=== PATIENT | male | born 1975 | race Caucasian/White ===

== ENCOUNTER 2018-01-21 06:27 | Emergency (ER) | payer SELFPAY ==
[2018-01-21 07:08] LABS: #Basophils 0.1 thou/uL (0.0-0.2); #Eosinphils 0.4 thou/uL (0.0-0.7); #Lymphocytes 2.5 thou/uL (1.20-3.40); #Monocytes 0.6 thou/uL (0.11-0.59); #Neutrophils 5.1 thou/uL (1.40-6.50); %Basophils 0.7 % (0.0-1.0); %Eosinophils 4.7 % (0.0-10.0); %Lymphocytes 28.7 % (21.0-51.0); %Monocytes 6.8 % (0.0-10.0); Hemoglobin 16.9 g/dL (14.0-18.0); Mean Corpuscular HGB CONC 33.5 g/dL (32.0-36.0); Mean Corpuscular Hemoglobin 31.8 pg (27.0-31.0); Mean Platelet Volume 7.5 fL (7.4-10.4); Platelet Count 381 thou/uL (130-400); RBC Distribution Width 11.6 % (11.5-14.5); White Blood Cell (WBC) Count 8.6 thou/uL (4.8-10.8)
[2018-01-21] MEDS ORDERED: Morphine 4 MG/ML VIAL ONE (07:09)
[2018-01-21] MEDS ORDERED: Ondansetron PF 4 MG/2 ML Vial ONE (07:09)
[2018-01-21 07:30] LABS: ALT (SGPT) 39 U/L (8-55); AST (SGOT) 22 U/L (5-34); Albumin 4.4 g/dL (3.5-5.0); Alkaline Phosphatase 100 U/L (40-150); Anion Gap 12 mmol/L (10-20); BUN (Urea Nitrogen) 16 mg/dL (8.9-20.6); Bilirubin, Total 0.5 mg/dL (0.2-1.2); Calc. Creatinine Clearance 0 mL/min (70-130); Calcium 9.6 mg/dL (7.8-10.44); Carbon Dioxide 24 mmol/L (22-29); Chloride 105 mmol/L (98-107); Estimated GFR-MDRD 84; Globulin 3.4 g/dL (2.4-3.5); Glucose 107 mg/dL (70-105); Lipase 8 U/L (8-78); Potassium 4.2 mmol/L (3.5-5.1); Protein, Total 7.8 g/dL (6.0-8.3); Sodium 137 mmol/L (136-145)
[2018-01-21 07:38] LABS: Bilirubin Negative (Negative); Blood, Urine Moderate (Negative); Clarity CLEAR (Clear); Glucose, Urine (Dipstick) Negative (Negative); Leukocyte Negative (Negative); Nitrite Negative (Negative); Protein, Urine (Dipstick) Trace mg/dL (Neg-Trace); Specific Gravity, Urine 1.029 (1.002-1.036); Urobilinogen 0.2 mg/dL (0.2-1.0); pH, Urine 5.5 (5.0-9.0)
[2018-01-21 07:40] LABS: Bacteria/HPF None Seen HPF (None Seen); Hyaline Casts/LPF 0-3 HYALINE CAST LPF (0-3 Hyaline); Squamous Epithelial 0-3 HPF (0-3); WBC/HPF 0-3 HPF (0-3)
[2018-01-21] MEDS ORDERED: Ketorolac Tromethamine 30 MG/ML VIAL ONE (08:19)
--- NOTE | 2018-01-21 08:36 | ULT ---
RIGHT UPPER QUADRANT ULTRASOUND: Date: 01/21/18 HISTORY: Gallstones. FINDINGS: The liver demonstrates increased and coarse echogenicity consistent with fatty infiltration. No focal mass or intrahepatic ductal dilatation is seen. A nonshadowing 2.4 cm echogenic focus is seen in the gallbladder. The gallbladder wall is at upper limits of normal in thickness, measuring 3.0 mm. The g allbladder is dilated, measuring 10.0 cm. No pericholecystic fluid is seen. The echogenic focus in th e gallbladder may represent a sludge ball. Posterior to this, there is a shadowing gallstone. The com mon duct measures 4.0 mm in diameter. The pancreas is not well visualized due to overlying bowel gas. The right kidney is unremarkable. IMPRESSION: 1. Fatty liver. 2. Cholelithiasis and gallbladder sludge ball. POS: [facility]
== END 2018-01-21 09:34 | disposition home or self-care (01) ==
LOC: ERS 06:27
DX: K80.20 Calculus of gallbladder without cholecystitis without obstruction (principal); F17.210 Nicotine dependence, cigarettes, uncomplicated; Z79.899 Other long term (current) drug therapy
CPT/HCPCS: 76705; 80053; 81003; 81015; 83690; 85025; 96361; 96374; 96375; J1885; J2270; J2405

== ENCOUNTER → 2018-03-24 | Day surgery (SDC) | payer SELFPAY ==
[~2018-03-24] MED LIST: Bupivacaine/Epinephrine 0.25% 30 ML VIAL ONE; Fentanyl 100 MCG/2 ML VIAL ONE; Ketorolac Tromethamine 30 MG/ML VIAL ONE; Lidocaine 2% Jelly 5 ML TUBE ONE; Midazolam HCl 2 mg/2 ml Vial ONE; Morphine 4 MG/ML VIAL ONE; Ondansetron HCl/PF 4 MG/2 ML Vial IVP PRN; PACU-Morphine 4MG/ML VIAL SLOW IVP PRN; Pantoprazole 40 MG VIAL ONE; Piperacillin/Tazobactam 4.5 GM VIAL ONE; Promethazine HCl 25 MG/ML VIAL IM PRN; Promethazine HCl 25 MG/ML VIAL ONE; Promethazine HCl 25 MG/ML VIAL SLOW IVP PRN
--- NOTE | 2018-03-24 09:42 | ULT ---
SONOGRAM RIGHT UPPER QUADRANT: HISTORY: Right upper quadrant pain. COMPARISON: 01/21/2018. FINDINGS: Echogenic sludge and stones are again demonstrated within the gallbladder lumen. There is no gallbla dder wall thickening or pericholecystic fluid. The common duct is 0.4 cm. The liver remains diffuse ly echogenic without focal mass or intrahepatic biliary dilatation. No free fluid. Echogenic focus is apparent at the right renal hilum, consistent with stone on recent CT. IMPRESSION: 1. Cholelithiasis. No evidence of acute biliary obstruction. 2. Hepatosteatosis. 3. Nonobstructing right renal calculus. POS: [facility]
[2018-03-24 10:28] LABS: PTT 31.4 SEC (22.9-36.1); Prothrombin Time 12.9 SEC (12.0-14.7)
--- NOTE | 2018-03-24 10:41 | HP ---
CHIEF COMPLAINT: Epigastric abdominal pain. HISTORY OF PRESENT ILLNESS: The patient is a 43-year-old white male. He presents to the emergency room today for his fourth time since December 17 complaining of epigastric abdominal pain. He has been recognized to have cholelithiasis with a 2.3 cm gallstone present within his gallbladder. CT scan and ultrasound of abdomen were obtained in December to confirm this. For financial reasons, the patient was unable to proceed with an outpatient laparoscopic cholecystectomy. He had acute onset of epigastric abdominal pain at about midnight earlier this morning. He had several episodes of vomiting. He was seen at the hospital in [place] and subsequently transferred here. His laboratory studies have never revealed any significant liver function test abnormality. His electrolytes today are normal. CBC reveals an elevated white blood cell count of 11, that is probably associated with his vomiting. Hemoglobin is 17.4. I am consulted in regard to his multiply recurrent episodes of biliary colic and acute episode today. PAST MEDICAL HISTORY: Negative. PAST SURGICAL HISTORY: None. MEDICATIONS: None. ALLERGIES: NONE. PRIMARY CARE PHYSICIAN: None. PERSONAL AND SOCIAL HISTORY: He is , and his is present at bedside. He has five children. He smokes two packs per day of cigarettes and does not drink alcohol. He denies any illegal drug use. 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 He lives in [place]. REVIEW OF SYSTEMS: Otherwise unremarkable. FAMILY HISTORY: Noncontributory. PHYSICAL EXAMINATION: VITAL SIGNS: He is afebrile. Pulse is in the 90s. Blood pressure is slightly elevated. GENERAL: Well-developed, well-nourished, pleasant white male, resting in bed within obvious discomfort. He is alert and oriented x3. HEAD, EYES, EARS, NOSE, AND THROAT: Unremarkable. NECK: Supple without mass or tenderness. LUNGS: Clear to auscultation throughout. CARDIAC: Regular rate and rhythm without murmur. ABDOMEN: Soft. Surprisingly, even with palpation in the epigastrium and right upper quadrant, he does not have peritoneal signs, typical of a Jaramillo sign. EXTREMITIES: Unremarkable. ASSESSMENT: The patient with symptomatic cholelithiasis with recurrent episodes of biliary colic. PLAN: Laparoscopic cholecystectomy. I have discussed the operation in detail with the patient as well as potential risks. He understands and agrees to proceed with surgery at this time. Job ID: [id number]
--- NOTE | 2018-03-24 11:55 | RAD ---
PORTABLE AP CHEST XRAY: DATE: 03/24/2018. HISTORY: Preoperative evaluation. COMPARISON: 03/24/2018 at 0446 hours. FINDINGS: The cardiac silhouette and pulmonary vasculature are within normal limits. The lungs remain clear. There has been no interval change from the recent study. IMPRESSION: No acute cardiopulmonary process. POS: [facility]
--- NOTE | 2018-03-24 21:08 | OP ---
DATE OF PROCEDURE: 03/24/2018 PREOPERATIVE DIAGNOSIS: Cholelithiasis/cholecystitis. POSTOPERATIVE DIAGNOSIS: Cholelithiasis/cholecystitis. OPERATION PERFORMED: Laparoscopic cholecystectomy. ANESTHESIA: General endotracheal. INDICATIONS: The patient is a 43-year-old white male, who presents to the hospital today with this fourth episode of upper abdominal pain in the past 3 months. He is known to have a large gallstone present within his gallbladder. He is taken to the operative room at this time for laparoscopic cholecystectomy. DESCRIPTION OF OPERATION: Informed consent was obtained. The patient was taken to the operating room where general endotracheal anesthesia was obtained with the patient in the supine position. The abdomen was prepped with Betadine and draped in the usual sterile fashion. 0.25% Marcaine with epinephrine was infiltrated below the umbilicus and a 10 mm infraumbilical incision was created. A Veress needle was passed through this incision into the peritoneal cavity. A pneumoperitoneum was established using carbon dioxide up to a pressure of 15 mmHg. Local anesthetic was infiltrated and 3 additional 5 mm right upper quadrant incisions were created. Through the mid incision, a 5 mm port was passed into the peritoneal cavity. The camera was passed through this port and under direct vision, an 11 port was passed through the infraumbilical incision. The camera was replaced through this port, and under direct vision, 2 additional 5 mm ports were passed through the incisions already created. The gallbladder was grasped and retracted in a cephalad direction. Minimal adhesions were bluntly stripped away from the apex of the gallbladder, and the apex was retracted laterally and inferiorly. Careful dissection was carried out to the apex of the gallbladder to identify the cystic duct and cystic artery. These were each carefully dissected circumferentially. The duct was of normal caliber. Both the duct and the artery were divided between clips, leaving 2 on the side to remain within the abdomen. The gallbladder was then dissected out of the gallbladder fossa using electrocautery and removed through the infraumbilical port site. The fascia was closed with 0 Vicryl suture and a GraNee needle. The right upper quadrant was inspected and irrigated. All irrigant was aspirated. All ports and instruments were removed under direct vision. Pneumoperitoneum was carefully evacuated. Additional local anesthetic was infiltrated into each port site. The skin edges were approximated with 4-0 Monocryl subcuticular sutures, and Dermabond was placed externally. There were no complications. The patient tolerated the procedure well and was taken to the recovery room in stable condition. FINDINGS: The patient had evidence of acute and chronic inflammation of his gallbladder. There were omental adhesions, as well as gallbladder distention. There was a single large dominant gallstone in the apex of the gallbladder. The duct itself was small and noninflamed. The operation was performed without complication or significant blood loss. Additionally, the patient had a small supraumbilical hernia with herniated preperitoneal fat. This preperitoneal fat was resected and the hernia was repaired using a [id number] suture of 0 Vicryl placed with GraNee needle at the end of the case. There were no complications. The patient tolerated the procedure well and was taken to recovery room in stable condition. Job ID: [id number]
== END ==
LOC: ERS 06:25 → SDC 11:31
PROVIDERS: ATTEND Specialist
PROC: 0FT44ZZ Resection of Gallbladder, Percutaneous Endoscopic Approach (ICD-10-PCS; principal; 2018-03-24)
PROC: 0WQF0ZZ Repair Abdominal Wall, Open Approach (ICD-10-PCS; principal; 2018-03-24)
DX: K80.12 Calculus of gallbladder with acute and chronic cholecystitis without obstruction (principal); K42.9 Umbilical hernia without obstruction or gangrene; K66.0 Peritoneal adhesions (postprocedural) (postinfection); K82.8 Other specified diseases of gallbladder
CPT/HCPCS: 36415; 71045; 76705; 85610; 85730; 88304; 93005; 96361; 96365; 96375; 96376; C9113; J0131; J1885; J2250; J2270; J2543; J2550; J3010

== ENCOUNTER 2018-07-15 14:34 | Emergency (ER) | payer SELFPAY ==
[2018-07-15] MEDS ORDERED: ISOVUE-370 76%-LOCM 1 ML ONE (15:15)
--- NOTE | 2018-07-15 16:27 | ULT ---
Testicular ultrasound INDICATION: Right testicular pain for one month TECHNIQUE: Grayscale, color Doppler spectral Doppler images were obtained of the scrotum. COMPARISON: None. FINDINGS: Right testicle: The right testicle measured 5.1 x 2.6 x 3.4cm. There is normal vascular flow to the r ight testicle there is a small right-sided hydrocele There is a 6 mm right epididymal head cyst. Left testicle: The left testicle measured 4.6 x 2.6 x 3.2cm. There is normal vascular flow to left te sticle. There is a small left hydrocele.There is a 3 mm left epididymal head cysts. Additional findings: None. Impression: 1. No evidence of testicular torsion or intratesticular mass. 2. Small bilateral epididymal head cysts.
[2018-07-15 17:06] LABS: #Basophils 0.1 thou/uL (0.0-0.2); #Eosinphils 0.2 thou/uL (0.0-0.7); #Lymphocytes 3.1 thou/uL (1.20-3.40); #Monocytes 0.7 thou/uL (0.11-0.59); #Neutrophils 8.5 thou/uL (1.40-6.50); %Basophils 0.4 % (0.0-1.0); %Eosinophils 1.6 % (0.0-10.0); %Lymphocytes 24.6 % (21.0-51.0); %Monocytes 5.4 % (0.0-10.0); %Neutrophils 68.1 % (42.0-75.0); Mean Corpuscular HGB CONC 34.4 g/dL (32.0-36.0); Mean Corpuscular Hemoglobin 32.9 pg (27.0-31.0); Mean Corpuscular Volume 95.7 fL (78.0-98.0); Mean Platelet Volume 8.4 fL (7.4-10.4); Platelet Count 326 thou/uL (130-400); RBC Distribution Width 11.8 % (11.5-14.5); Red Blood Cell (RBC) Count 5.17 mill/uL (4.70-6.10); White Blood Cell (WBC) Count 12.5 thou/uL (4.8-10.8)
[2018-07-15 17:27] LABS: ALT (SGPT) 46 U/L (8-55); AST (SGOT) 27 U/L (5-34); Albumin 4.6 g/dL (3.5-5.0); Alkaline Phosphatase 106 U/L (40-150); Anion Gap 14 mmol/L (10-20); BUN (Urea Nitrogen) 11 mg/dL (8.9-20.6); Bilirubin, Total 1.5 mg/dL (0.2-1.2); Calc. Creatinine Clearance 0 mL/min (70-130); Calcium 9.9 mg/dL (7.8-10.44); Carbon Dioxide 23 mmol/L (22-29); Chloride 104 mmol/L (98-107); Estimated GFR-MDRD 88; Globulin 3.3 g/dL (2.4-3.5); Glucose 102 mg/dL (70-105); Potassium 3.8 mmol/L (3.5-5.1); Protein, Total 7.9 g/dL (6.0-8.3); Sodium 137 mmol/L (136-145)
[2018-07-15] MEDS ORDERED: Morphine 4 MG/ML VIAL ONE (18:47)
[2018-07-15] MEDS ORDERED: Ondansetron PF 4 MG/2 ML Vial ONE (18:47)
[2018-07-15 19:25] LABS: Bilirubin Negative (Negative); Blood, Urine Large (Negative); Clarity CLEAR (Clear); Glucose, Urine (Dipstick) Negative (Negative); Leukocyte Small (Negative); Nitrite Negative (Negative); Protein, Urine (Dipstick) Trace mg/dL (Neg-Trace); Specific Gravity, Urine 1.021 (1.002-1.036); Urobilinogen 0.2 mg/dL (0.2-1.0)
[2018-07-15 19:29] LABS: Bacteria/HPF None Seen HPF (None Seen); Hyaline Casts/LPF 4-6 HYALINE CAST LPF (0-3 Hyaline); Pathc Cast-AUWi Flag 0.13 (0-2.49); RBC/HPF 21-50 HPF (0-3); Squamous Epithelial 0-3 HPF (0-3)
--- NOTE | 2018-07-15 20:11 | CT ---
CT of abdomen and pelvis: 07/15/2018 COMPARISON: 12/28/2017 HISTORY: Right-sided scrotal pain TECHNIQUE: Axial CT imaging at 5 mm intervals from lung bases through pubic symphysis with IV contras t. Coronal reformatted imaging obtained. FINDINGS: The visualized lung bases are unremarkable. Cholecystectomy clips are present. No free intr aperitoneal air or fluid. Hypodensity of the hepatic parenchyma suggest steatosis. The spleen, pancreas, and adrenal glands are unremarkable. The left kidney is unremarkable. There is a stone within the renal pelvis on the right with mild associated stranding of the adjacent fat and mild thickening of the urothelium. These findings are unchanged when compared to the prior CT examination. This stone within the right renal pelvis measures approximately 1 cm in transverse di mension. No evidence for bowel inflammatory change or obstruction. The appendix is unremarkable. The vascular structures appear patent. No pelvic, retroperitoneal, or mesenteric lymphadenopathy. Osseous structures demonstrate no acute findings. IMPRESSION: Persistent stone within the right renal pelvis with subtle adjacent fat stranding and ass ociated urothelial thickening. This suggests a degree of urothelial inflammation. No evidence for obstructive uropathy.
== END 2018-07-15 22:36 | disposition home or self-care (01) ==
LOC: ERS 14:34
DX: N50.811 Right testicular pain (principal); F17.210 Nicotine dependence, cigarettes, uncomplicated
CPT/HCPCS: 74177; 76870; 80053; 81003; 81015; 85025; 93976; 96374; 96375; J2270; J2405; Q9966

== ENCOUNTER 2018-07-25 13:29 | Emergency (ER) | payer SELFPAY ==
[2018-07-25 15:10] LABS: #Basophils 0.1 thou/uL (0.0-0.2); #Eosinphils 0.2 thou/uL (0.0-0.7); #Lymphocytes 3.1 thou/uL (1.20-3.40); #Monocytes 0.7 thou/uL (0.11-0.59); #Neutrophils 8.3 thou/uL (1.40-6.50); %Basophils 0.8 % (0.0-1.0); %Neutrophils 66.3 % (42.0-75.0); Hemoglobin 16.7 g/dL (14.0-18.0); Mean Corpuscular HGB CONC 34.2 g/dL (32.0-36.0); Mean Corpuscular Hemoglobin 32.8 pg (27.0-31.0); Mean Corpuscular Volume 95.7 fL (78.0-98.0); Mean Platelet Volume 8.1 fL (7.4-10.4); Platelet Count 309 thou/uL (130-400); RBC Distribution Width 11.7 % (11.5-14.5); Red Blood Cell (RBC) Count 5.11 mill/uL (4.70-6.10); White Blood Cell (WBC) Count 12.5 thou/uL (4.8-10.8)
[2018-07-25 15:29] LABS: Bilirubin Negative (Negative); Blood, Urine Large (Negative); Clarity CLEAR (Clear); Glucose, Urine (Dipstick) Negative (Negative); Leukocyte Trace (Negative); Nitrite Negative (Negative); Protein, Urine (Dipstick) Negative (Neg-Trace); Specific Gravity, Urine 1.011 (1.002-1.036); Urobilinogen 0.2 mg/dL (0.2-1.0); pH, Urine 5.5 (5.0-9.0)
[2018-07-25 15:31] LABS: Bacteria/HPF None Seen HPF (None Seen); Hyaline Casts/LPF 0-3 HYALINE CAST LPF (0-3 Hyaline); Squamous Epithelial 0-3 HPF (0-3)
[2018-07-25 15:34] LABS: ALT (SGPT) 45 U/L (8-55); AST (SGOT) 28 U/L (5-34); Albumin 4.6 g/dL (3.5-5.0); Alkaline Phosphatase 104 U/L (40-150); Anion Gap 16 mmol/L (10-20); BUN (Urea Nitrogen) 10 mg/dL (8.9-20.6); Bilirubin, Total 1.8 mg/dL (0.2-1.2); Calc. Creatinine Clearance 0 mL/min (70-130); Calcium 9.8 mg/dL (7.8-10.44); Carbon Dioxide 23 mmol/L (22-29); Chloride 103 mmol/L (98-107); Estimated GFR-MDRD Greater than 90; Globulin 3.1 g/dL (2.4-3.5); Glucose 89 mg/dL (70-105); Lipase 6 U/L (8-78); Potassium 3.9 mmol/L (3.5-5.1); Protein, Total 7.7 g/dL (6.0-8.3); Sodium 138 mmol/L (136-145)
[2018-07-25] MEDS ORDERED: HYDROcodone/Acetaminophen 10/325 mg Tablet ONE (19:05)
[2018-07-25] MEDS ORDERED: Ketorolac Tromethamine 60 MG/2 ML VIAL ONE (19:05)
== END 2018-07-25 19:47 | disposition home or self-care (01) ==
LOC: ERS 13:29
DX: N20.0 Calculus of kidney (principal); F17.210 Nicotine dependence, cigarettes, uncomplicated
CPT/HCPCS: 36415; 80053; 81003; 81015; 83690; 85025; 96372; J1885

== ENCOUNTER 2018-08-01 08:06 | Day surgery (SDC) | payer SELFPAY ==
[2018-07-31 08:35] VITALS: BMI 29.0
[2018-08-01] MEDS ORDERED: Morphine 4 MG/ML VIAL ONE (09:41)
[2018-08-01] MEDS ORDERED: Iothalamate Meglumine 60% 50 ML VIAL FS ONE (11:50)
[2018-08-01] MEDS ORDERED: Midazolam HCl 2 mg/2 ml Vial ONE (12:18)
[2018-08-01] MEDS ORDERED: HYDROmorphone 0.5 MG/0.5 ML SYRINGE ONE (12:18)
[2018-08-01] MEDS ORDERED: Sodium Chloride 0.9% 100 ML ONE (12:24)
[2018-08-01] MEDS ORDERED: cefTRIAXone\\ROCEPHIN 1 GM VIAL ONE (12:24)
[2018-08-01] MEDS ORDERED: Dexamethasone 20 MG/5 ML VIAL ONE (13:48)
[2018-08-01] MEDS ORDERED: Rocuronium Bromide 10 MG/ML (10ML VIAL) ONE (13:48)
[2018-08-01] MEDS ORDERED: Glycopyrrolate 0.2 MG/ML 5 ML SYRINGE ONE (13:48)
[2018-08-01] MEDS ORDERED: Ondansetron PF 4 MG/2 ML Vial ONE (13:48)
[2018-08-01] MEDS ORDERED: Lidocaine 1% PF 5 ML VIAL ONE (13:48)
[2018-08-01] MEDS ORDERED: ePHEDrine 50 MG/ML VIAL ONE (13:48)
[2018-08-01] MEDS ORDERED: PROPOFOL 200 MG/20 ML VIAL ONE (13:48)
[2018-08-01] MEDS ORDERED: Fentanyl 100 MCG/2 ML VIAL ONE ×2 (14:17→14:32)
[2018-08-01] MEDS ORDERED: Ketorolac Tromethamine 30 MG/ML VIAL ONE (15:03)
[2018-08-01] MEDS ORDERED: HYDROcodone/Acetaminophen 5/325 mg Tablet ONE ×2 (15:47→15:48)
--- NOTE | 2018-08-01 21:26 | OP ---
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 PREPROCEDURE DIAGNOSIS: Right renal pelvis calculus. POSTPROCEDURE DIAGNOSIS: Right renal pelvis calculus. PROCEDURES PERFORMED: 1. Right ureteroscopy with laser lithotripsy. 2. Right ureteral stent placement, 6-Macedonian x 26 cm. ANESTHESIA: General endotracheal anesthesia. COMPLICATIONS: None. FLUIDS: See anesthesia record. BLOOD LOSS: 5 mL. SPECIMENS: Right renal pelvis calculus for stone analysis. POSTPROCEDURE STATUS: Satisfactory. INDICATIONS FOR PROCEDURE: Mr. Allen is a 43-year-old male with no past urologic history. He has presented to the emergency department two different times for right flank pain associated with nausea. A CT demonstrated a 1 cm right renal pelvis calculus. After indications/risks/benefits/alternatives/possible outcomes were discussed with the patient in detail, he elected to proceed with right ureteroscopy with laser lithotripsy and all indicated procedures. DESCRIPTION OF PROCEDURE: The patient was taken to the operating room and after successful induction of general endotracheal anesthesia, he was placed in the dorsal lithotomy position. His genitalia were prepped and draped in usual sterile fashion. A time-out was performed. Following which, a 21-Macedonian rigid cystoscope was inserted into the patient's urethra and advanced into the bladder. Cystoscopy was performed and was unremarkable. The right ureteral orifice was identified. It was cannulated with a Sensor wire and was advanced under fluoroscopic guidance up to the level of the right renal pelvis. The stone could be seen within the right renal pelvis. We removed the cystoscope. A dual-lumen catheter was placed, and a retrograde pyelogram was performed. There were no filling defects or other concerning findings other than the stone noted in the right renal pelvis. A second wire was placed, and the dual-lumen catheter was removed. Second wire was secured to the drape and used as a safety wire. The inner portion of a 13/15-Macedonian ureteral access sheath was advanced up the ureter to the ureteropelvic junction to dilate the ureter. We then placed the entire access sheath with minimal resistance up to the right ureteropelvic junction. The [employer] digital flexible ureteroscope was used to perform pyeloscopy. The stone was immediately identified. A 200 micron laser fiber was used to fragment the stone fragments were extracted with a ZeroTip Nitinol basket, and sent for stone analysis. We inspected all the calyces at the end of the procedure, and there were known stone fragments greater than 1 mm in diameter remaining. There was a fair amount of "dust", but no significant sized stone fragments remaining and none could be visualized fluoroscopically. We then performed a retrograde pyelogram through the scope to outline the right renal pelvis. We removed the ureteroscope along with the access sheath, inspecting the ureter as we did so, there was no damage to the ureter, but there was some edema in the mucosa secondary to instrumentation. We elected to leave a ureteral stent. We backloaded the cystoscope over the safety wire. A 6-Macedonian x 26 cm double-J ureteral stent was placed and upon wire removal, a good curl was achieved proximally within the right renal pelvis and distally within the bladder. The patient's bladder was drained. He tolerated the procedure well, was awoken from anesthesia, transferred to the PACU in satisfactory condition. Job ID: [id number]
[2018-08-06 12:11] LABS: CA Oxalate Dihydrate 20 % (.); CA Oxalate Monohydrate 70 % (.); CA Phosphate 10 % (.); Color Brown (.); Comment Note: (.)
== END 2018-08-01 16:45 | disposition home or self-care (01) ==
LOC: SDC 08:06
PROVIDERS: ATTEND Urology
PROC: 0TF38ZZ Fragmentation in Right Kidney Pelvis, Via Natural or Artificial Opening Endoscopic (ICD-10-PCS; principal; 2018-08-01)
PROC: 0T768DZ Dilation of Right Ureter with Intraluminal Device, Via Natural or Artificial Opening Endoscopic (ICD-10-PCS; principal; 2018-08-01)
DX: N20.0 Calculus of kidney (principal)
CPT/HCPCS: 74420; 82365; 88300; C1758; C1769; J0696; J1100; J1170; J1885; J2001; J2250; J2270; J2405; J2704; J3010; J3490; Q9961

== ENCOUNTER 2021-10-14 19:15 | Emergency (ER) | payer OTHER, SELFPAY ==
[~2021-10-14 19:15] MED LIST changes: -Bupivacaine/Epinephrine 0.25% 30 ML VIAL ONE; -Fentanyl 100 MCG/2 ML VIAL ONE; +Iopamidol-370 76% 500 ML 1 ML ONE; -Ketorolac Tromethamine 30 MG/ML VIAL ONE; -Lidocaine 2% Jelly 5 ML TUBE ONE; -Midazolam HCl 2 mg/2 ml Vial ONE; -Morphine 4 MG/ML VIAL ONE; -Ondansetron HCl/PF 4 MG/2 ML Vial IVP PRN; -PACU-Morphine 4MG/ML VIAL SLOW IVP PRN; -Pantoprazole 40 MG VIAL ONE; -Piperacillin/Tazobactam 4.5 GM VIAL ONE; -Promethazine HCl 25 MG/ML VIAL IM PRN; -Promethazine HCl 25 MG/ML VIAL ONE; -Promethazine HCl 25 MG/ML VIAL SLOW IVP PRN
[2021-10-14 21:24] LABS: #Basophils 0.1 thou/uL (0.0-0.2); #Eosinphils 0.3 thou/uL (0.0-0.7); #Lymphocytes 3.7 thou/uL (1.20-3.40); #Monocytes 0.9 thou/uL (0.11-0.59); %Basophils 0.8 % (0.0-1.0); %Eosinophils 2.3 % (0.0-10.0); %Lymphocytes 34.1 % (21.0-51.0); %Monocytes 7.8 % (0.0-10.0); Hemoglobin 15.3 g/dL (14.0-18.0); Mean Corpuscular HGB CONC 34.1 g/dL (32.0-36.0); Mean Corpuscular Hemoglobin 33.7 pg (27.0-31.0); Mean Platelet Volume 8.4 fL (7.4-10.4); Platelet Count 269 thou/uL (130-400); Red Blood Cell (RBC) Count 4.55 mill/uL (4.70-6.10); White Blood Cell (WBC) Count 10.9 thou/uL (4.8-10.8)
[2021-10-14 21:27] LABS: Bacteria/HPF None Seen HPF (None Seen); Bilirubin Negative (Negative); Blood, Urine 1+ (Negative); Clarity Extra Turbid (Clear); Glucose, Urine (Dipstick) Normal (Negative); Ketone, Urine Negative (Negative); Leukocyte Negative Leu/uL (Negative); Nitrite Negative (Negative); Protein, Urine (Dipstick) Negative (Neg-Trace); RBC/HPF 0-3 HPF (0-3); Specific Gravity, Urine 1.015 (1.002-1.036); Squamous Epithelial None Seen HPF (0-3); Urobilinogen Normal mg/dL (Less than 2); WBC/HPF None Seen HPF (0-3)
[2021-10-14 21:45] LABS: ALT (SGPT) 54 U/L (8-55); AST (SGOT) 31 U/L (5-34); Albumin 4.1 g/dL (3.5-5.0); Alkaline Phosphatase 80 U/L (40-110); Anion Gap 12 mmol/L (10-20); BUN (Urea Nitrogen) 14 mg/dL (8.9-20.6); Bilirubin, Total 0.9 mg/dL (0.2-1.2); Calc. Creatinine Clearance 0 mL/min (70-130); Calcium 9.5 mg/dL (7.8-10.44); Carbon Dioxide 28 mmol/L (22-29); Chloride 102 mmol/L (98-107); Estimated GFR 85; Globulin 2.9 g/dL (2.4-3.5); Glucose 92 mg/dL (70-105); Lipase 49 U/L (8-78); Potassium 3.6 mmol/L (3.5-5.1); Sodium 138 mmol/L (136-145)
== END 2021-10-14 23:02 | disposition home or self-care (01) ==
LOC: ERS 19:15
DX: R10.9 Unspecified abdominal pain (principal); F17.210 Nicotine dependence, cigarettes, uncomplicated
CPT/HCPCS: 36415; 74177; 80053; 81003; 81015; 83690; 85025; 93005; Q9967

== ENCOUNTER 2021-10-21 08:43 | Emergency (ER) | payer SELFPAY ==
[2021-10-21] MEDS ORDERED: HYDROcodone/Acetaminophen 10/325 mg Tablet ONE (10:11)
== END 2021-10-21 10:15 | disposition home or self-care (01) ==
LOC: ERS 08:43
DX: K04.7 Periapical abscess without sinus (principal)
CPT/HCPCS: 99282

== ENCOUNTER 2023-05-17 08:47 | Emergency (ER) | payer SELFPAY | END 2023-05-17 11:45 | disposition home or self-care (01) | LOC: ERS 08:47 | DX: M79.661 Pain in right lower leg (principal); F17.210 Nicotine dependence, cigarettes, uncomplicated ==